=== PATIENT | female | born 1970 | race Caucasian/White ===

== ENCOUNTER 2019-09-06 14:39 | Emergency (ER) | payer OTHER, SELFPAY ==
--- NOTE | 2019-09-06 09:34 | ECG_ITS ---
APPROVED REPORT Exam: Resting ECG HR:82 bpm ECG Measurements Heart Rate 82 AXES [place] 152 P 41 QRSd 70 QRS 29 QT 374 T 27 QTc 436 <Conclusion> Normal sinus rhythm Junctional ST depression, probably normal Borderline ECG Electronically signed by : Irving Ceballos, 09/07/2019 06:13:27
[2019-09-06 14:41] VITALS: BP 120/78; PULSE 83; RESP 18; TEMP 37.1; O2SAT 98; BMI 33.4
--- NOTE | 2019-09-06 14:52 | HMH.EDGENADL ---
ED Disposition Clinical Impression: Cholelithiasis and cholecystitis without obstruction Qualifiers: Cholelithiasis location: gallbladder Cholecystitis acuity: acute and chronic Qualified Code(s): K80.12 - Calculus of gallbladder with acute and chronic cholecystitis without obstruction Disposition: Home, Self-Care Condition on Discharge: Good Instructions: Fat-Restricted Diet, DI for Gallstones, DI for General Gallbladder Conditions Additional Instructions: Low-fat diet. Levaquin and Flagyl as prescribed. Percocet as needed for pain. Zofran as needed for nausea. Outpatient gallbladder ultrasound on , 09/08/2019 at 9 AM. Follow-up with Dr. Martines in the office within 1 to 2 days, call for appointment. Return to the emergency room if uncontrollable pain or vomiting, fever greater than 100.5, or jaundice. Additional instructions for CONTROLLED SUBSTANCES: You have been prescribed a medication that is a controlled substance. Controlled substances include pain medications known as opiates and sedative nerve medications known as benzodiazepines. Tramadol, fioricet, and gabapentin are also controlled substances. Some common opiates include: Codeine (such as Tylenol #3) Hydrocodone (Vicodin, Lortab, Lorcet, [place]) Oxycodone (Percocet, Percodan, Oxycodone, Oxy IR) Some common benzodiazepines include: Diazepam (Valium) Lorazepam (Ativan) Alprazolam (Xanax) Clonazepam (Klonopin) Oxazepam (Serax) All of these controlled substances are highly addictive and frequently abused. Misuse can and frequently does lead to addiction as well as overdose and . Medication should be stored in a locked cabinet or other secure storage unit. Do not store the medication in a motor vehicle. Short term supplies, 3 days or less, are prescribed because of the highly addictive nature of the medication. Any of the controlled substance medication NOT taken should be disposed of properly and NOT SAVED. The recommended method of disposing of unused medications is: Place the medicines in a sealable plastic bag. If the medicine is a solid, crush it or add water to dissolve it. Add something undesirable (cat litter, coffee grounds, etc.) Dispose of sealed bag in household trash Do not flush or pour unused medicines down a sink or drain. Controlled substances should not be shared, given away or sold. Because of the addictive nature and frequent abuse, these medications are sometimes stolen. These medications should be kept in a safe place where they cannot be stolen. Do not keep them in your car or purse. Lost or stolen prescriptions for controlled substances WILL NOT BE REFILLED in this emergency department, regardless of whether a police report was filed. Prescriptions: Oxycodone HCl/Acetaminophen [Percocet 5/325mg tablet] 1 tab PO Q6HP PRN #10 tab PRN Reason: Moderate To Severe Pain Transmission Status: Received by [id number] metroNIDAZOLE [Flagyl 500mg Tablet] 500 mg PO TID #21 tab Transmission Status: Received by [id number] levoFLOXacin [Levaquin 750mg tablet] 750 mg PO DAILY #7 tab Transmission Status: Received by [id number] Referrals: Provider,MD Andrea [Primary Care Provider] - Damion Martines MD [Staff Physician] - - Critical Care Critical Care Time: No Attestation: On , the high probability of a clinically significant, sudden or life threatening deterioration of the following system(s) required my full and direct attention, intervention and personal management. The time I documented below is in addition to time spent performing reported procedures but includes the following listed in this critical care notation. Medical Decision Making - Anthony Inquiry Pt receiving controlled substance: Yes Anthony was queried for this patient: No Reason not queried -: Emergent pt cond-no time Risks and benefits of using a controlled substance: were not discussed with pt by luke
--- NOTE | 2019-09-06 14:55 | CT_ITS ---
PROCEDURE: CT ABDOMEN PELVIS WO CON CLINICAL INDICATION: abdomen pain COMPARISON: No exams were available for comparison TECHNIQUE: Axial images obtained with sagittal and coronal reformats. All CT scans at the facility use one or more dose reduction, viz: automated exposure control, ma/kV adjustment per patient size (including targeted exams where dose is matched to indication, i.e. head), or iterative reconstruction technique. FINDINGS: Lower thorax: The lower lung becerra are clear and there is no pleural fluid. Cardiac size is normal. ABDOMEN: Liver: No masses or biliary dilatation. Gallbladder: The gallbladder is moderately distended and contains multiple calcified and partially calcified stones and shows a mildly thickened wall. There probably is some biliary sludge present as well. Pancreas: No masses or peripancreatic fluid collections. Spleen: unremarkable Adrenals: unremarkable Kidneys/ureters: The kidneys are normal in size and no calculi and there is no obstructive uropathy. ABDOMEN & PELVIS: Stomach bowel: There is a small sliding hiatal hernia. The stomach duodenal sweep and small bowel appear grossly normal. There is a moderate amount stool in the ascending and proximal transverse colon. The descending and sigmoid colon are decompressed. Peritoneum: No abnormal fluid collections. No obvious inflammatory changes. No free air. Lymph nodes: No enlarged lymph nodes apparent. Vasculature: No evidence of abdominal aortic aneurysm. No retroperitoneal hemorrhage evident. Bones: There is mild degenerate disc disease L5-S1 level. PELVIS: Reproductive: unremarkable Bladder: The urinary bladder is partially decompressed, there is no free fluid in the pelvis. Appendix: Unremarkable. No distention or periappendiceal phlegmonous change. Retrocecal in location. IMPRESSION: Obviously abnormal gallbladder with cholelithiasis and probable biliary sludge and findings suggesting mild chronic cholecystitis, no other significant abdominal or pelvic pathology identified. Dictated by: Dr. Rick Patel MD 09/06/2019 15:[address] Rick Patel MD in [place] 09/06/2019 15:30
--- NOTE | 2019-09-06 15:08 | PC.NURSE ---
Pt to rad.
[2019-09-06 15:45] VITALS: BP 130/64; PULSE 79; O2SAT 97
[2019-09-06 16:00] LABS: Basophils # 0.1 K/mm3 (0-0.2); Basophils % 0.3 % (0.1-2.0); Eosinophils # 0.2 K/mm3 (0.0-0.4); Eosinophils % 0.7 % (0.1-12.0); Hemoglobin 15.2 g/dL (12.2-16.2); Lymphocytes % 9.6 % (10-50); Mean Corpuscular HGB Conc 36.1 g/dL (31.8-35.4); Mean Corpuscular Hemoglobin 34.3 pg (27.0-31.2); Mean Corpuscular Volume 94.8 fl (81-99); Monocytes # 1.6 K/mm3 (0.1-1.0); Monocytes % 7.6 % (1.7-9.3); Neutrophils # 17.1 K/mm3 (1.8-7.8); Neutrophils % 81.8 % (37.0-80.0); Platelet Count 301 K/mm3 (142-424); Red Blood Count 4.43 M/mm3 (4.20-5.40); Red Cell Distribution Width 12.4 % (11.5-17.5); White Blood Count 20.9 K/mm3 (4.8-10.8)
[2019-09-06 16:08] LABS: Lipase 74 U/L (23-300)
[2019-09-06 16:10] LABS: MANUAL DIFFERENTIAL MANUAL DIFFERENTIAL (MANUAL DIFF)
[2019-09-06 16:16] LABS: Chloride 100 mmol/L (98-107); Sodium 136 mmol/L (136-145)
[2019-09-06 16:18] LABS: Amylase 56 U/L (30-110)
[2019-09-06 16:19] LABS: Alanine Aminotransferase 15 U/L (12-78); Albumin Level 4.5 g/dl (3.5-5.0); Albumin/Globulin Ratio 1.3 (1.1-1.8); Alkaline Phosphatase 107 U/L (38-126); Aspartate Amino Transferase 65 U/L (14-36); Bilirubin,Total 0.9 mg/dl (0.2-1.3); Blood Urea Nitrogen 8 mg/dl (7-17); Calcium 9.2 mg/dl (8.4-10.2); Carbon Dioxide 24 mmol/L (22.0-30.0); Creatinine Clearance Estimated 179 mL/min (50-200); Estimated Glomerular Filt Rate 106 ml/min (>60); GFR (African American) 129 ML/MIN (>60); Globulin 3.4 g/dL (1.3-3.2); Glucose 98 mg/dl (74-100); Total Protein,Serum 7.9 g/dl (6.3-8.2)
[2019-09-06 16:25] LABS: Troponin I < 0.01 ng/ml (0.00-0.034)
[2019-09-06 16:29] VITALS: BP 121/58; PULSE 87; O2SAT 95
[2019-09-06 16:41] LABS: Lymphocytes % 11 % (10-50); Monocytes % 8 % (2-9); Neutrophils % 81 % (42-76); Platelet Estimate Normal; RBC Morphology Normal; Total Cells Counted 100
--- NOTE | 2019-09-06 16:55 | PC.NURSE ---
lab with pt at this time.
--- NOTE | 2019-09-06 17:03 | PC.NURSE ---
Hayley mendez RN spoke with radiology about scheduling an Gal bladder US for pt, per verbal order from Dr Martines to Dr Brenner.
[2019-09-06 17:22] LABS: Lactic Acid 1.2 mmol/L (0.7-2.1)
[2019-09-06 17:33] VITALS: BP 121/58; PULSE 87; RESP 18; TEMP 37.1; O2SAT 97
--- NOTE | 2019-09-07 16:23 | ECG_ITS ---
APPROVED REPORT Exam: Resting ECG HR:82 bpm ECG Measurements Heart Rate 82 AXES [place] 152 P 41 QRSd 70 QRS 29 QT 374 T 27 QTc 436 <Conclusion> Normal sinus rhythm Junctional ST depression, probably normal Borderline ECG Electronically signed by : Irving Ceballos, 09/07/2019 06:13:27
== END 2019-09-06 17:34 | disposition home or self-care (01) ==
PROVIDERS: Emergency Provider Emergency Medicine
DX: K80.12 Calculus of gallbladder with acute and chronic cholecystitis without obstruction (principal)
CPT/HCPCS: 36415; 74176; 80053; 82150; 83605; 83690; 84484; 85007; 85025; 87040; 93005; 96365; 96375; 99283; J1335; J2405

== ENCOUNTER → 2019-09-08 08:41 | Outpatient (CLI) | payer OTHER, SELFPAY ==
--- NOTE | 2019-09-08 08:45 | US_ITS ---
PROCEDURE: US GALLBLADDER CLINICAL INDICATION: gallbladder Right upper quadrant pain COMPARISON: CT ABDOMEN PELVIS WO CON from 09/06/2019 FINDINGS: Pancreas: Unremarkable/Not well seen Liver: Unremarkable. There is appropriate direction of blood flow within a non dilated portal vein. Right kidney: Unremarkable appearing. No hydronephrosis. Gallbladder: Gallbladder abnormal elongated measuring approximately 13 cm longitudinal and 4 cm AP. Multiple stones are present with a thickened wall. Common bile duct is normal at 5 mm. No pericholecystic fluid demonstrated. IMPRESSION: Enlarged gallbladder with thickened wall and multiple stones suspicious for cholecystitis which could be acute or chronic. Please correlate with clinical parameters Dictated by: Mack Wilson MD 09/08/2019 17:24 Electronically signed by Mack Wilson MD in [place] 09/08/2019 17:24
== END ==
PROVIDERS: Visit Provider Surgery
DX: K80.10 Calculus of gallbladder with chronic cholecystitis without obstruction (principal)
CPT/HCPCS: 76705

== ENCOUNTER → 2019-09-11 10:19 | Outpatient (CLI) | payer OTHER, SELFPAY ==
[2019-09-11 10:43] LABS: Basophils % 0.6 % (0.1-2.0); Eosinophils # 0.1 K/mm3 (0.0-0.4); Eosinophils % 1.7 % (0.1-12.0); Hematocrit 42.6 % (37.0-47.0); Hemoglobin 15.1 g/dL (12.2-16.2); Lymphocytes # 1.3 K/mm3 (0.7-4.5); Lymphocytes % 17.8 % (10-50); Mean Corpuscular HGB Conc 35.3 g/dL (31.8-35.4); Mean Corpuscular Hemoglobin 35.2 pg (27.0-31.2); Mean Corpuscular Volume 99.7 fl (81-99); Mean Platelet Volume 7.3 fl (7.4-10.4); Monocytes # 0.5 K/mm3 (0.1-1.0); Monocytes % 6.7 % (1.7-9.3); Neutrophils # 5.5 K/mm3 (1.8-7.8); Neutrophils % 73.2 % (37.0-80.0); Platelet Count 353 K/mm3 (142-424); Red Blood Count 4.28 M/mm3 (4.20-5.40); Red Cell Distribution Width 12.2 % (11.5-17.5); White Blood Count 7.5 K/mm3 (4.8-10.8)
[2019-09-11 11:02] LABS: Chloride 105 mmol/L (98-107); Sodium 139 mmol/L (136-145)
[2019-09-11 11:03] LABS: Potassium 3.6 mmoL/L (3.5-5.1)
[2019-09-11 11:05] LABS: Alanine Aminotransferase 20 U/L (12-78); Alkaline Phosphatase 79 U/L (38-126); Anion Gap 15.6 mEq/L (5-15); Aspartate Amino Transferase 29 U/L (14-36); Bilirubin,Total 0.5 mg/dl (0.2-1.3); Blood Urea Nitrogen 11 mg/dl (7-17); Carbon Dioxide 22 mmol/L (22.0-30.0); Estimated Glomerular Filt Rate 89 ml/min (>60); GFR (African American) 108 ML/MIN (>60)
[2019-09-11 11:06] LABS: Albumin Level 4.3 g/dl (3.5-5.0); Albumin/Globulin Ratio 1.7 (1.1-1.8); Calcium 9.1 mg/dl (8.4-10.2); Globulin 2.6 g/dL (1.3-3.2); Glucose 203 mg/dl (74-100); Total Protein,Serum 6.9 g/dl (6.3-8.2)
[2019-09-11 11:16] LABS: Coronavirus 19 IgG Antibody Negative (Negative); Coronavirus 19 IgM Antibody Negative (Negative)
== END ==
PROVIDERS: Visit Provider Surgery
DX: Z01.818 Encounter for other preprocedural examination (principal); K80.10 Calculus of gallbladder with chronic cholecystitis without obstruction
CPT/HCPCS: 80053; 85025; 86328

== ENCOUNTER 2019-09-12 05:55 | Day surgery (SDC) | payer OTHER, SELFPAY ==
[2019-09-09 16:47] VITALS: BMI 33.4
[2019-09-12] VITALS (14 sets, daily range): BP systolic 107–124; BP diastolic 69–85; PULSE 74–87; RESP 13–20; TEMP 36.4–36.9; O2SAT 93–97
[2019-09-12 06:33] LABS: Urine Pregnancy, HCG Qual. Negative (Negative)
--- NOTE | 2019-09-12 06:40 | HMH.ANESCL ---
[facility] Anesthesia Checklist - Patient Identification Patient Identification: Arm Band, Verbal (Name & ) - Structural Data Admitted From: Home Planned Operative Procedure/s: lap choly Consent for Planned Operative Procedure(s) Verified: Yes Verified Documents: History and Physical - NPO Status Verified Time NPO: 00:00 - Chart Verification Results Verified: CBC, BMP - Additional verifications Patient : No Anesthesia Reactions: No Hx Blood Transfusions: No Blood Transfusion Reaction: No Cephalosporin Allergy: No Previous Colonoscopy: Yes - Cardiovascular Assessment Heart Sounds: S1 & S2 Pulse Strength: Baseline Pulse Rhythm: Regular Peripheral Edema: No - Airway Assessment C-Spine Mobility Assessed: Yes TMJ Mobility Assessed: Yes Dentition: Good Dentition - Neurological Assessment Level of Consciousness: Awake, Alert, Appropriate Hx Seizures: No Numbness or tingling in extremities: No - Anesthesia Plan Anesthesia Risk discussed: Yes Anesthesia Plan: Verified ASA Class: I Anesthesia Type: General [facility] History I have reviewed the patient's past medical history: Yes Medical History: 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 No: Pacemaker Amputation: No Fractures: Yes (ankle sx x2) - *Social History Educational Level: Completed College Smoking Status: Never smoker Tobacco Type: e-cigarettes # Packs/Day (cigarettes): 1 Alcohol Intake: never Substance Use Type: marijuana *Occupational Status:: employed Housing: house Household Members: spouse, family *Travel in the last 8 weeks: None Family Hx:: No significant family history
--- NOTE | 2019-09-12 08:49 | HMH.OPNOTE ---
Date of procedure: 09/12/19 Pre-op Diagnosis:: Cholecystitis with gallstones Post-op Diagnosis:: Acute and chronic calculus cholecystitis Procedure performed:: Laparoscopic cholecystectomy Surgeon:: Damion Martines MD TRAVEL OCCUPATIONAL THERAPIST:: Irving Matta Anesthesia: RUFUS Estimated blood loss (mL): 30 Clinical Note:: Patient is a 49-year-old who normally receives medical care at the [facility]. She began experiencing abdominal pain on Thursday, September 01. This persisted and progressed and she presented to the emergency department on September 05 where she was seen and evaluated. She underwent CT scan which revealed abnormal gallbladder with findings of possible cholecystitis. She was able to be managed as an outpatient and treated with levofloxacin and metronidazole as well as oxycodone. She has had some ongoing symptoms but it is better controlled with the antibiotics, narcotics, and watching her diet. She did undergo outpatient ultrasound of the gallbladder which reveals findings of gallbladder wall thickening with gallstones and normal common bile duct. Operative findings:: Patient had a significantly distended thickened gallbladder with multiple stones with thick, almost purulent, sludge. She had appreciable fatty infiltration of the liver. Operative note:: Patient was taken to the operating room. She was given preoperative intravenous antibiotics. In the operating room she was placed in a supine position. General anesthesia was induced via endotracheal tube. Abdomen was prepped and draped in the standard surgical fashion. Subumbilical skin incision was performed. While performing abdominal wall lift Veress needle was inserted. CO2 pneumoperitoneum was achieved to 15 mmHg. 11 mm optical trocar was inserted at the umbilicus. Intraperitoneal contents were visualized. She was positioned in reverse Trendelenburg and left side down. A couple of 5 mm trochars were inserted in the right upper abdomen. 10 mm trocar was inserted in the epigastrium. Gallbladder was easily identified as it was markedly distended. Gallbladder was grasped and was found to be tense and thickened. There was some unavoidable spillage of bile which was consistent with somewhat purulent sludge. This was immediately suctioned free. Gallbladder was retracted anteriorly and superiorly over the dome of the liver. Infundibulum of the gallbladder was retracted anterior laterally. There was an intense inflammatory response throughout the gallbladder. Dissection was carried out at the neck of the gallbladder ultimately dissecting free the cystic duct which was isolated. Cystic duct was then multiply clipped and then sharply divided. Dissection was carried out using MIGUEL ultrasonic harmonic reynaldo. She had a rather prominent apparent right hepatic vein posterior to the gallbladder. There is some minor oozing and Surgicel was inserted temporarily which resulted in good hemostasis. Cystic artery was identified and carefully coagulated with MIGUEL ultrasonic harmonic reynaldo and divided. The gallbladder was dissected free from the liver in a retrograde fashion using MIGUEL ultrasonic harmonic reynaldo. Gallbladder was placed within an Endo Catch retrieval device and removed from the peritoneal cavity via the umbilical trocar site which required some extension of the fascial and the skin incision for delivery. Gallbladder fossa was inspected for hemostasis which was assured. Right hepatic artery was hemostatic. Thorough irrigation kneeing was performed with several liters of saline and aspirated until clear. Trochars were removed as CO2 pneumoperitoneum was evacuated. Fascia at the umbilicus was closed with numerous interrupted 0 Vicryl sutures. Local anesthetic was infiltrated. Skin incisions were closed with 4-0 Monocryl in a subcuticular fashion. Steri-Strips and dressings were applied. Condition: stable Disposition: PACU Specimens:: Gallbladder and contents Complications
--- NOTE | 2019-09-12 08:55 | HMH.ANESI ---
[facility] Anesthesia Record Part I Intake, IV Amount: 550 Estimated blood loss (mL): 10 Urine output (mL): 0 Blood Products used (#): none Blood Pressure: 124/69 SaO2: 97 Pulse Rate: 86 Respiratory Rate: 20 Temperature: 98.5 F Patient is:: Drowsy, Stable Stable to PACU at:: 08:52
--- NOTE | 2019-09-12 10:00 | HMH.ANESII ---
[facility] Anesthesia Record Part II Discharge Time: 09:22 Destination: Surgical Day Care (OP Surgery) PACU nurse assessment reviewed?: Yes Patient Condition:: Good Anesthesia Complications:: None Swallowing reflex intact?: Yes Cyanosis?: No Blood Pressure: 117/69 Pulse Rate: 85 Temperature: 98.1 F Mental Status: Alert & Oriented Pain level:: 2 Nausea and/or vomitting:: None Intake, IV Amount: 25
== END 2019-09-12 10:15 | disposition home or self-care (01) ==
LOC: OR 05:57
PROVIDERS: Visit Provider Surgery
PROC: 0FT44ZZ Resection of Gallbladder, Percutaneous Endoscopic Approach (ICD-10-PCS; CPT 47562; principal; 2019-09-12 07:30)
DX: K80.12 Calculus of gallbladder with acute and chronic cholecystitis without obstruction (principal); K76.0 Fatty (change of) liver, not elsewhere classified; Z85.818 Personal history of malignant neoplasm of other sites of lip, oral cavity, and pharynx; Z79.899 Other long term (current) drug therapy; Z72.0 Tobacco use
CPT/HCPCS: 47562; 81025; 88304; 96374; J2405; J2710

== ENCOUNTER 2023-08-15 08:24 | Emergency (ER) | payer SELFPAY ==
[2023-08-15 08:25] VITALS: BP 122/77; PULSE 86; RESP 18; TEMP 36.4; O2SAT 97; BMI 31.3
[2023-08-15 08:30] VITALS: BP 122/77; PULSE 74; O2SAT 96
--- NOTE | 2023-08-15 08:40 | PC.NURSE ---
Dr. Ndiaye at [facility] for pt eval
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
[2023-08-15 08:45] VITALS: PULSE 77; O2SAT 96
--- NOTE | 2023-08-15 08:57 | PC.NURSE ---
going for ct and xray.
[2023-08-15] MEDS: METHOCARBAMOL 500MG TABLET 1500 MG PO (09:01)
[2023-08-15] MEDS: ACETAMINOPHEN 500MG TAB 1000 MG PO (09:02)
[2023-08-15] MEDS: ONDANSETRON 4MG ODT 4 MG SL (09:02)
[2023-08-15] MEDS: KETOROLAC 30MG/ML VIAL 30 MG IM (09:02)
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
[2023-08-15 09:30] VITALS: BP 133/77
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
[2023-08-15 10:00] VITALS: BP 125/72
[2023-08-15 10:41] VITALS: BP 115/70; PULSE 71; RESP 18; TEMP 36.6; O2SAT 96
== END 2023-08-15 10:49 | disposition home or self-care (01) ==
PROVIDERS: Emergency Provider Emergency Medicine
DX: S22.080A Wedge compression fracture of T11-T12 vertebra, initial encounter for closed fracture (principal); R11.0 Nausea; V47.5XXA Car driver injured in collision with fixed or stationary object in traffic accident, initial encounter; Y92.410 Unspecified street and highway as the place of occurrence of the external cause
CPT/HCPCS: 71101; 72128; 72131; 96372; 99285